=== PATIENT | male | born 1990 | race Caucasian/White ===

== ENCOUNTER 2017-04-03 19:21 | Emergency (ER) | payer SELFPAY ==
[~2017-04-03] VITALS: Ht 195.6 cm; Wt 88.7 kg
[2017-04-03 19:34] VITALS: BP 129/80
== END 2017-04-04 02:00 | disposition left against medical advice (07) ==
LOC: EME 19:21
DX: F19.10 Other psychoactive substance abuse, uncomplicated (principal); Z53.21 Procedure and treatment not carried out due to patient leaving prior to being seen by health care provider; R41.82 Altered mental status, unspecified; F17.200 Nicotine dependence, unspecified, uncomplicated